=== PATIENT | female | born 1960 | race Caucasian/White ===

== ENCOUNTER → 2024-10-18 14:34 | Outpatient (REF) | payer MEDICARE, SELFPAY | LOC: RCS 14:34 | PROVIDERS: ATTENDING PHYSICIAN Internal Medicine Cardiovascular Disease; FAMILY PHYSICIAN Family Medicine | DX: I42.9 Cardiomyopathy, unspecified (principal) | CPT/HCPCS: 93306 ==

== ENCOUNTER → 2025-08-13 12:15 | Outpatient (REF) | payer MEDICARE, SELFPAY ==
[2025-08-13 13:59] LABS: Hematocrit 43.3 % (37.0-47.0); Hemoglobin 14.5 g/dL (12.0-16.0); Mean Corp Hgb Conc. 33.5 g/dL (33.0-37.0); Mean Corpuscular Volume 97.3 fL (81.0-99.0); Nucleated Red Blood Cells % 0 %; Platelet Count 261 10^3/uL (130-400); Red Cell Dist. Width 12.8 % (11.5-14.5)
[2025-08-13 14:34] LABS: ALT (SGPT) 25 U/L (0-35); AST (SGOT) 24 U/L (14-36); Albumin 4.4 g/dl (3.5-5.0); Alkaline Phosphatase 52 U/L (38-126); Blood Urea Nitrogen 19 mg/dl (7-17); Calcium 11.0 mg/dl (8.4-10.2); Carbon Dioxide 27 mmol/L (22-30); Chloride 106 mmol/L (98-107); Glucose 100 mg/dl (70-99); Potassium 5.2 mmol/L (3.5-5.1); Sodium 139 mmol/L (135-145); Total Protein 7.5 g/dl (6.3-8.2); eGFR > 60.00
[2025-08-14 15:01] LABS: HDL Cholesterol 86 mg/dl; LDL Cholesterol, Calculated 95 mg/dl; Very Low Density Lipoprotein 17 mg/dl (0-30)
== END ==
LOC: REG 12:15
PROVIDERS: ATTENDING PHYSICIAN Physician Assistant; FAMILY PHYSICIAN Family Medicine
DX: J06.9 Acute upper respiratory infection, unspecified (principal); R53.83 Other fatigue; R63.4 Abnormal weight loss; I42.9 Cardiomyopathy, unspecified; E78.00 Pure hypercholesterolemia, unspecified
CPT/HCPCS: 36415; 80053; 80061; 84443; 85025

== ENCOUNTER → 2025-10-24 09:30 | Outpatient (REF) | payer MEDICARE, SELFPAY | LOC: HWRAD 09:30 | PROVIDERS: ATTENDING PHYSICIAN Nurse Practitioner Family; FAMILY PHYSICIAN Family Medicine | DX: M81.0 Age-related osteoporosis without current pathological fracture (principal) | CPT/HCPCS: 77080 ==

== ENCOUNTER → 2025-11-19 08:23 | Outpatient (REF) | payer MEDICARE, SELFPAY | LOC: WDC 08:23 | PROVIDERS: ATTENDING PHYSICIAN Nurse Practitioner Family; FAMILY PHYSICIAN Family Medicine | DX: Z12.31 Encounter for screening mammogram for malignant neoplasm of breast (principal) | CPT/HCPCS: 77063; 77067 ==

== ENCOUNTER 2025-11-24 11:53 | Emergency (ER) | payer MEDICARE, SELFPAY ==
[2025-11-24 11:54] VITALS: BP 130/87
[2025-11-24 12:25] VITALS: BP 122/71
[2025-11-24 12:31] VITALS: BMI 22.7
[2025-11-24 12:52] LABS: Hematocrit 36.8 % (37.0-47.0); Hemoglobin 12.7 g/dL (12.0-16.0); Mean Corp Hgb Conc. 34.5 g/dL (33.0-37.0); Mean Corpuscular Volume 94.4 fL (81.0-99.0); Nucleated Red Blood Cells % 0 %; Platelet Count 290 10^3/uL (130-400); Red Cell Dist. Width 12.7 % (11.5-14.5)
[2025-11-24 13:05] LABS: ALT (SGPT) 23 U/L (0-35); AST (SGOT) 23 U/L (14-36); Albumin 4.0 g/dl (3.5-5.0); Alkaline Phosphatase 61 U/L (38-126); Blood Urea Nitrogen 22 mg/dl (7-17); Calcium 10.1 mg/dl (8.4-10.2); Carbon Dioxide 25 mmol/L (22-30); Chloride 106 mmol/L (98-107); Estimated Creatinine Clearance 58 ml/min; Glucose 98 mg/dl (70-99); Potassium 4.0 mmol/L (3.5-5.1); Sodium 135 mmol/L (135-145); Total Protein 6.9 g/dl (6.3-8.2); eGFR > 60.00
[2025-11-24 13:18] LABS: Troponin I < 0.012 ng/ml
[2025-11-24 14:29] VITALS: BP 102/65
--- NOTE | 2025-11-24 14:47 | ED.GENMED ---
History of Present Illness
General
Chief Complaint: Chest Pain
Source: patient
Exam Limitations: none
Time Seen by Provider: 11/24/25 12:36
Nursing documentation reviewed up to this point in time: agreed with
History of Present Illness
History of Present Illness:
Patient presents to ED secondary to persistent midsternal chest pain over the past 10 days. Patient states that her symptoms started 1 or 2 days after losing balance, and falling forward, where she injured her nose. Patient does not recall direct
trauma to her chest, nor does she experience pain immediately. Over the past 10 days, patient has been experiencing intermittent pain, worse with certain movements, with inspiration, without shortness of breath. Denies nausea or vomiting. Denies
back pain. Denies recent travel or surgery. Denies leg pain or swelling. Denies back pain. Denies previous history of similar symptoms. Denies recent illness.
Past History
Past History
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
ED Past Surgical History: Cardiac (Defibulater)
Social History
Tobacco: Non-smoker
Alcohol: Occasional
Personal:
Living: with family
Review of Systems
Review of Systems
Allergies reviewed?: Yes
All Other Systems: ROS reviewed and negative except as documented in HPI and ROS
Constitutional: Reports no symptoms
Respiratory: Reports no symptoms
Cardiac: Reports no symptoms
ABD/GI: Reports no symptoms
Musculoskeletal: Reports other (Chest wall pain)
Skin: Reports no symptoms
Neurological: Reports no symptoms
Phy Exam
Physical Exam
Physical Exam:
Physical Exam
General: no apparent distress, not acutely ill. afebrile
Head: nc/at. eomi
Neck: supple. normal range of motion
Heart: s1/s2 regular rate and rhythm
Lungs: no acute respiratory distress. clear bilaterally. tenderness to palpation over midsternum, without ecchymosis/swelling/erythema
Abdomen: normal bowel sounds. not tender.
Neuro: alert and oriented x 3. no focal neurological deficits
Skin: no rash
Psychiatric: well kept. interactive and cooperative
Extremities: no edema. no calf tenderness.
Scores
Heart Score for Chest Pain Patients
STEMI patient?: Not applicable
Course
Orders/Labs/Results
Orders:
Orders
11/24/25 11:57
Electrocardiogram (*1) Urgent
Reason for Study: Chest Pain
EKG- Treatment ONCE
11/24/25 12:35
Cardiac Monitoring- Treatment ONCE
11/24/25 12:36
Chest [CR Chest - 2 Views ] Urgent
Comment:
Reason For Exam: Sternal pain s/p fall
11/24/25 12:44
Complete Blood Count/With Diff Urgent
Comprehensive Metabolic Panel Urgent
Troponin I Urgent
11/24/25 14:52
D-Dimer Urgent
11/24/25 15:58
Dexamethasone Pf [Decadron] 10 mg PO NOW STA
Abnormal Lab Results
11/24/25
12:44
RBC 3.90 L 10^6/uL
(4.20-5.40)
Hct 36.8 L %
(37.0-47.0)
MCH 32.6 H pg
(27.0-31.0)
Monocytes % 10.0 H %
(1.7-9.3)
BUN 22 H mg/dl
(7-17)
11/24/25 12:44
11/24/25 12:44
Vital Signs
Initial and Last Documented VS:
Initial Vital Signs
Temp Pulse Resp BP Pulse Ox
98.2 F 92 16 130/87 97
11/24/25 11:54 11/24/25 11:54 11/24/25 11:54 11/24/25 11:54 11/24/25 11:54
Last Documented Vital Signs
Temp Pulse Resp BP Pulse Ox
98.2 F 80 15 124/67 97
11/24/25 11:54 11/24/25 16:00 11/24/25 16:00 11/24/25 16:00 11/24/25 16:00
MDM/Problems Addressed
MDM/Problems Addressed:
D dimer noted
History and exam consistent with likely chest wall strain, from recent fall. Otherwise, patient remains afebrile, hemodynamically stable, and without any acute distress while at rest. Patient does have exquisite focal tenderness to palpation,
worse with certain movements, making chest wall strain versus contusion most likely diagnosis. As such, patient will be discharged home at this time, with recommendation to rest, utilize prescribed medication, as needed, along with PCP follow-up
for an outpatient consultation, with consideration to receive further imaging studies, if symptoms persist. Advised to return to ED with worsening symptoms. Patient expresses understanding at time of discharge.
*Pulse Oximetry
SaO2: 97
Oxygen Mode of Delivery: Room air
Patient hypoxic: no
*Critical Care Note
Total Time (30-74mins, 75-104mins- exclusive of procedures): Not Applicable
ED Attending Note
-
Portions of this chart may have been created with voice recognition software.� Occasional wrong word or��sound alike� substitutions may have occurred due to the inherent limitations of voice recognition software.
Discharge Plan
Departure
Patient Disposition: Home (Routine Discharge)
Date of Disposition: 11/24/25
Time of Disposition: 15:58
Patient with high blood pressure during this ER visit?: Yes
Condition: Fair
Discharge Problem:
Chest wall pain
Instructions: Chest Pain That Is Not Caused by the Heart (DC)
Prescriptions:
New
tramadol 50 mg tablet
50 mg PO Q8H PRN (Reason: Pain) Qty: 14 0RF
No Action
carvedilol [Coreg] 25 MG tablet
25 mg PO BID
aspirin 81 MG tablet,delayed release (DR/EC)
81 mg PO DAILY
warfarin [Jantoven] 5 MG tablet
10 mg PO QPM
furosemide 20 MG tablet
20 mg PO .M// AND PRN
lisinopril 2.5 MG tablet
2.5 mg PO DAILY
Referrals:
Tejinder Chao MD [Family Provider, Family Practice]
Activity Restrictions/Additional Instructions:
As discussed, please follow-up with your primary care physician for reevaluation. Please consider return to ED with worsening symptoms. Your prescription has been sent electronically to [facility] pharmacy in [place].
Interventions
Interventions:
*General Assessment Last Done: 11/24/25 11:54
*Neglect/Abuse Screening Last Done: 11/24/25 11:54
*ED COVID-19 Vaccine History Last Done: 11/24/25 12:31
*ED Influenza Vaccine History Last Done: 11/24/25 12:31
[facility] Risk Assessment Tool Last Done: 11/24/25 12:31
*Risk Screen - Suicide (C-SSRS) Last Done: 11/24/25 11:54
*Nursing Disposition Last Done: 11/24/25 16:22
ED- Cardiac Assessment Last Done: 11/24/25 12:31
Discharge Date and Time
Discharge Date/Time: 11/24/25 16:23
Print Language: TUNISIAN
[2025-11-24 15:00] VITALS: BP 123/64
[2025-11-24 15:38] LABS: D-Dimer < 0.27 ug/mlFEU (0.00-0.50)
[2025-11-24 16:00] VITALS: BP 124/67
[2025-11-24] MEDS: DECADRON 10 MG PO (16:08)
== END 2025-11-24 16:23 | disposition home or self-care (01) ==
LOC: EMR 11:53
PROVIDERS: EMERGENCY PHYSICIAN Emergency Medicine; FAMILY PHYSICIAN Family Medicine
DX: R07.89 Other chest pain (principal); R03.0 Elevated blood-pressure reading, without diagnosis of hypertension
CPT/HCPCS: 99285; 71046; 80053; 84484; 85025; 85379; 93005